=== PATIENT | female | born 1970 ===

== ENCOUNTER 2017-05-10 10:01 | Emergency (ER) | payer OTHER ==
[2017-05-10 10:09] VITALS: BP 139/89; PULSE 109; RESP 20; TEMP 98.4; O2SAT 100
--- NOTE | 2017-05-10 10:52 | C.PDOC ---
History Of Present Illness Aye Sanabria is a 46 y/o female who presents for repeat quantitative beta-HCG. Patient was seen here on 05/07/17 and diagnosed with threatened , with negative pelvic US and HCG of 4168. Since then she has completed normal menstrual period bleeding, and is no longer bleeding. Patient has no pelvic pain. PMD: None reported Time Seen by Provider: 05/10/17 10:42 Chief Complaint (Nursing): Medical Clearance History Per: Patient History/Exam Limitations: no limitations Onset/Duration Of Symptoms: Days (x 3) Current Symptoms Are (Timing): Gone Reports Recently: Seen In ED Past Medical History Reviewed: Historical Data, Nursing Documentation, Vital Signs Vital Signs: Last Vital Signs Temp 98.4 F 05/10/17 10:07 Pulse 109 H 05/10/17 10:07 Resp 20 05/10/17 10:07 BP 139/89 05/10/17 10:07 Pulse Ox 100 05/10/17 10:55 - Medical History PMH: No Chronic Diseases Surgical History: No Surg Hx Family History: States: Unknown Family Hx - Social History Hx Tobacco Use: No Hx Alcohol Use: No Hx Substance Use: No - Immunization History Hx Tetanus Toxoid Vaccination: No Hx Influenza Vaccination: No Hx Pneumococcal Vaccination: No Review Of Systems Except As Marked, All Systems Reviewed And Found Negative. Genitourinary: Negative for: Vaginal Bleeding, Pelvic Pain Physical Exam - Physical Exam Appears: Well, Non-toxic, No Acute Distress Skin: Normal Color, Warm, Dry Head: Atraumatic, Normacephalic Eye(s): bilateral: Normal Inspection, PERRL, EOMI Oral Mucosa: Moist Neck: Normal, Supple Cardiovascular: Rhythm Regular, No Murmur Respiratory: Normal Breath Sounds, No Accessory Muscle Use Gastrointestinal/Abdominal: Normal Exam, Soft, No Tenderness Pelvic: Other (deferred) Extremity: Normal ROM, No Pedal Edema, No Deformity Neurological/Psych: Oriented x3, Normal Speech ED Course And Treatment O2 Sat by Pulse Oximetry: 100 (RA) Pulse Ox Interpretation: Normal Medical Decision Making Medical Decision Making: Time: 10:31 Initial Impression: 46 y/o female here for repeat beta-HCG Initial Plan: * Beta-HCG, Quantitative has dropped from 4168 to 3637, no further pain nor bleeding complete early AB Disposition Doctor Will See Patient In The: Office Counseled Patient/Family Regarding: Studies Performed, Diagnosis - Disposition Disposition: HOME/ ROUTINE Disposition Time: 11:42 Condition: GOOD Forms: [facility] (Nicaraguan) - Clinical Impression Clinical Impression: Complete - Scribe Statement The provider has reviewed the documentation as recorded by the Scribe (Micaela Rhodes) All medical record entries made by the Scribe were at my direction and personally dictated by me. I have reviewed the chart and agree that the record accurately reflects my personal performance of the history, physical exam, medical decision making, and the department course for this patient. I have also personally directed, reviewed, and agree with the discharge instructions and disposition.
== END 2017-05-10 11:47 | disposition home or self-care (01) ==
LOC: C.ER 10:01
DX: O03.9 Complete or unspecified spontaneous abortion without complication (principal)

== ENCOUNTER 2018-04-11 13:15 | Emergency (ER) | payer OTHER ==
[2018-04-11 13:24] VITALS: BP 132/86; PULSE 115; RESP 20; TEMP 99; O2SAT 100
--- NOTE | 2018-04-11 14:10 | C.PDOC ---
History Of Present Illness 47 year old female presents to the ED for evaluation of right-sided headache and generalized malaise. Patient states she missed work yesterday and has not taken any medicine for her symptoms. She denies fever, chills, vision change, nausea, vomiting. Time Seen by Provider: 04/11/18 14:04 Chief Complaint (Nursing): Headache History Per: Patient History/Exam Limitations: no limitations Onset/Duration Of Symptoms: Days Current Symptoms Are (Timing): Still Present Quality: Aching Associated Symptoms: denies: Blurred Vision, Nausea, Vomiting Additional History Per: Patient Past Medical History Reviewed: Historical Data, Nursing Documentation, Vital Signs Vital Signs: Last Vital Signs Temp 99 F 04/11/18 13:20 Pulse 115 H 04/11/18 13:20 Resp 20 04/11/18 13:20 BP 132/86 04/11/18 13:20 Pulse Ox 100 04/11/18 13:20 - Medical History PMH: Gastritis Surgical History: No Surg Hx Family History: States: Unknown Family Hx - Social History Hx Tobacco Use: No Hx Alcohol Use: No Hx Substance Use: No - Immunization History Hx Tetanus Toxoid Vaccination: No Hx Influenza Vaccination: No Hx Pneumococcal Vaccination: No Review Of Systems Constitutional: Positive for: Malaise. Negative for: Fever, Chills Eyes: Negative for: Vision Change Gastrointestinal: Negative for: Nausea, Vomiting Neurological: Positive for: Headache (right-sided) Physical Exam - Physical Exam Appears: Non-toxic, No Acute Distress Skin: Normal Color, Warm, Dry Head: Atraumatic, Normacephalic Eye(s): bilateral: Normal Inspection Ear(s): Bilateral: Normal Nose: Other (nasal passages: moderate to severe erythema, right>left ) Oral Mucosa: Moist Throat: Normal, No Erythema, No Exudate Neck: Supple Chest: Symmetrical, No Deformity, No Tenderness Cardiovascular: Rhythm Regular, No Murmur Respiratory: Normal Breath Sounds, No Rales, No Rhonchi, No Wheezing Extremity: Normal ROM, Capillary Refill (less than 2 seconds ) Neurological/Psych: Oriented x3, Normal Speech, Normal Cognition Gait: Steady ED Course And Treatment O2 Sat by Pulse Oximetry: 100 (on RA) Pulse Ox Interpretation: Normal Progress Note: Motrin PO and Sudafed PO given. Medical Decision Making Medical Decision Making: sinus headache R>L Disposition Doctor Will See Patient In The: Office Counseled Patient/Family Regarding: Studies Performed, Diagnosis - Disposition Referrals: [facility] [Outside] [facility] [Outside] [facility] [Outside] Disposition: HOME/ ROUTINE Disposition Time: 14:10 Condition: GOOD Additional Instructions: ibuprofeno/advil/Motrin 400-600 mg cada 6 horas mandy necessario para dolor de cady Psdudafed 30-60 mg cada 6 horas -se descongestiona las pasajes nasales Flonase espray nasal 1 espray cada lado del nariz cada 12 horas Instructions: Sinus Headache (DC) Forms: [facility] (Syriac) Print Language: TURKMEN - Clinical Impression Clinical Impression: Sinus headache - Scribe Statement The provider has reviewed the documentation as recorded by the Scribe (Charo Butler) Provider Attestation: All medical record entries made by the Scribe were at my direction and personally dictated by me. I have reviewed the chart and agree that the record accurately reflects my personal performance of the history, physical exam, medical decision making, and the department course for this patient. I have also personally directed, reviewed, and agree with the discharge instructions and disposition.
== END 2018-04-11 14:19 | disposition home or self-care (01) ==
LOC: C.ER 13:15
DX: R51 Headache (principal)